=== PATIENT | male | born 1965 | race Hispanic/Latino ===

== ENCOUNTER 2020-04-05 05:42 | Emergency (ER) | payer BC, SELFPAY ==
[2020-04-05 05:43] VITALS: BP 153/95; PULSE 95; RESP 18; TEMP 36.6; O2SAT 97; BMI 29.0
--- NOTE | 2020-04-05 05:44 | RAD_ITS ---
STUDY: X-RAY CHEST REASON FOR EXAM: Male, 54 years old. Chest pain throughout the night, worsens with deep breaths. TECHNIQUE: PA and lateral views of the chest. COMPARISON: 05/30/2017 FINDINGS: There are superimposed monitor leads. There are stable areas of hyperinflation. There is no demonstrated pleural abnormality. Normal size heart. Normal mediastinum and lay. Normal visualized pulmonary arteries. Normal visualized aortic arch and descending thoracic aorta. There are mild degenerative changes of the visualized thoracic spine. Normal visualized ribs, clavicles, and shoulders. There is no demonstrated abnormality of the visualized soft tissue structures of the upper abdomen. RAD/Chest PA and Lateral IMPRESSION: Component of COPD. No pulmonary edema, congestive heart failure or confluent pneumonia. Electronically Signed: Teresa Moreno MD at 6:25 EDT , Service support ,
--- NOTE | 2020-04-05 05:44 | EKG12_ITS ---
Test Reason : CP Blood Pressure : / mmHG Vent. Rate : 084 BPM Atrial Rate : 084 BPM P-R Int : 184 ms QRS Dur : 088 ms QT Int : 368 ms P-R-T Axes : 040 031 028 degrees QTc Int : 434 ms Normal sinus rhythm Normal ECG Confirmed by JAMARI CHEN MD ([id number]), news editor YONIS SHIELDS ([id number]) on 04/07/2020 2:36:44 PM Referred By: ANTOLIN Confirmed By:JAMARI CHEN MD
--- NOTE | 2020-04-05 05:54 | ED.VIS.GEN ---
History of Present Illness Chief Complaint: Chest Pain Narrative: This patient is a 54-year-old male who presents with chest pain. This began about 9:00 last night, about 9 hours before presentation here. He describes his pain as a pressure. It is substernal and radiates to the left chest. It is 6 out of 10 at its worst. It is worse with certain positions namely laying on his left side. It is also worse with inspiration. He feels short of breath. No diaphoresis nausea vomiting. No history of prior DVT or pulmonary embolism. No extremity pain or swelling. No fevers cough or diarrhea. No recent travel. He did have a rotator cuff surgery about 2 months ago. Patient is diabetic and also treated for hyperlipidemia. He denies history of coronary artery disease. Past Medical History - Allergies and Home Meds Allergies/Adverse Reactions: Allergies No Known Allergies Allergy (Verified 04/05/20 05:43) Primary Care Physician: Edinson Esparza MD [Primary Care Provider] - Past Medical History: - - Diabetes, hyperlipidemia Surgical History: - - Rotator cuff Smoking Status: Never smoker Review of Systems All systems negative except as indicated General: Denies: Fever Eyes: Denies: Visual changes - bilaterally ENT: Denies: Bilateral ear pain Cardiovascular: Reports: Chest pain Respiratory: Reports: Dyspnea. Denies: Cough Gastrointestinal: Denies: Abdominal pain, Nausea, Vomiting Skin: Denies: Rash Neurological: Denies: Headache Physical Exam Vital Signs/Narrative: Vital Signs Temp Pulse Resp BP Pulse Ox 04/05/20 05:43 97.8 F 95 18 153/95 H 97 Inital Vital Signs reviewed: Yes General: Well nourished Head: Normocephalic Eyes: EOMI ENT: Moist mucous membranes Neck: Supple Cardiovascular: Regular rate, Regular rhythm Respiratory: No distress, CTA bilaterally Abdomen: Soft, Nontender, Nondistended Extremities: Nontender, No edema, - - Symmetric palpable radial pulses Skin: Normal color Neurological: Alert Psychological: Normal affect Diagnostic/Tx/Re-eval - Medical Decision Making EKG shows sinus rhythm at a rate of 84 there is some diffuse NH depression suggestive of pericarditis. Labs as above unremarkable normal ESR negative troponin normal d-dimer. Chest x-ray shows no acute process. Heart score is 3. However given age and comorbidities including diabetes hyperlipidemia I did recommend hospital observation. The patient states he needs to take his doctor college tomorrow. He wishes to leave AGAINST MEDICAL ADVICE. He does understand he is welcome to return at any point for reevaluation and I encouraged him to do so for any new worsening or recurrent symptoms. He was advised to contact his primary care physician for follow-up as soon as possible and he was discharged home. ED Disposition - Plan for ED Patient: Disposition: Home or Assisted Living Diagnosis: Chest pain Instructions: ED Chest Pain Atypical Unkn Cause Referrals: Edinson Esparza MD [Primary Care Provider] -
[2020-04-05 05:55] LABS: Absolute Lymphocyte Count 2.97 X10^3/uL (0.83-4.51); Absolute Neutrophil Count 7.5 X10^3/uL (2.0-7.7); Basophil# 0.05 X10^3/uL; Basophil% 0.4 % (0-1); Eosinophil# 0.23 X10^3/uL; Hematocrit 46.6 % (40-54); Hemoglobin 15.8 g/dL (13.0-16.5); Lymphocyte # 2.97 X10^3/ul (4.0); Lymphocyte % 25.3 % (19-41); Mean Corp Hgb Conc 33.9 g/dL (32-36); Mean Corpuscular Hgb 29.6 pg (27.0-32.0); Mean Corpuscular Volume 87.4 fL (80-94); Mean Platelet Vol. 9.2 fl (6.2-12.0); Monocyte# 0.97 X10^3/uL; Monocyte% 8.3 % (0-10); NRBC Flagged by Analyzer 0 % (0-5); Neutrophil # 7.49 X10^3/uL (2.7-7.7); Neutrophil % 63.7 % (47-70); Platelet Count 269 K/mm3 (150-450); RBC Distribution Width CV 12.3 % (11.6-14.6); RBC Distribution Width SD 38.9 fl (35.1-43.9); Red Blood Count 5.33 M/mm3 (4.6-6.2); White Blood Count 11.8 K/mm3 (4.4-11.0)
[2020-04-05 06:10] LABS: Erythrocyte Sedimentation Rate 9 mm/hr (0-20)
[2020-04-05] MEDS: Aspirin 81 MG TAB.CHEW 324 MG PO (06:11)
[2020-04-05 06:13] LABS: Anion Gap 8 (5-15); BUN 19 mg/dL (7-18); BUN/Creat Ratio 18.6 RATIO (10-20); Calcium,Total 8.6 mg/dL (8.5-10.1); Chloride 105 mmol/L (98-107); Creatinine, Serum 1.02 mg/dL (0.70-1.30); EST Glomerular Filtration Rate 80 mL/min (>60); Est Glom Filt Rate - Afr Amer 97 mL/min (>60); Estimated Creatinine Clearance 86.13 ml/min; Glucose 145 mg/dL (74-106); Sodium Level 138 mmol/L (136-145)
[2020-04-05 06:31] LABS: D-Dimer Quantitative (DVT/PE) <= 0.27 FEU/ug/m (0.27-0.49)
[2020-04-05 06:53] VITALS: BP 152/94; PULSE 86; RESP 16; O2SAT 95
[2020-04-05 07:15] VITALS: BP 125/95; PULSE 87; RESP 20; O2SAT 97
== END 2020-04-05 07:17 | disposition left against medical advice (07) ==
PROVIDERS: Emergency Provider Emergency Medicine; PCP Internal Medicine
DX: R07.9 Chest pain, unspecified (principal); E11.9 Type 2 diabetes mellitus without complications; E78.5 Hyperlipidemia, unspecified; Z79.84 Long term (current) use of oral hypoglycemic drugs
CPT/HCPCS: 71046; 80048; 84484; 85025; 85379; 85652; 93005; 99284; A4216

== ENCOUNTER 2020-04-05 16:52 | Emergency (ER) | payer BC, SELFPAY ==
[2020-04-05] VITALS (13 sets, daily range): BP systolic 105–140; BP diastolic 57–95; PULSE 61–88; RESP 16–20; TEMP 37; O2SAT 89–98; BMI 29.0; BMI 30.7
--- NOTE | 2020-04-05 16:58 | EKG12_ITS ---
Test Reason : Blood Pressure : / mmHG Vent. Rate : 087 BPM Atrial Rate : 087 BPM P-R Int : 180 ms QRS Dur : 086 ms QT Int : 350 ms P-R-T Axes : 033 123 133 degrees QTc Int : 421 ms Sinus rhythm Otherwise normal ECG Confirmed by JAMARI CHEN MD ([id number]), film and video editor MICHELE VEE ([id number] on 04/07/2020 3:49:02 PM Referred By: Confirmed By:JAMARI CHEN MD
--- NOTE | 2020-04-05 17:06 | ED.DCSUM_ITS ---
History of Present Illness Chief Complaint: Chest Pain Informant: Patient Onset: Yesterday Timing: Continuous Quality: Dull Location: Substernal, Left Chest Current Severity: Moderate Maximum Severity: Moderate Worsened By: Exertion, Breathing - Somewhat, at times Relieved By: Nothing - Has been continuous all day today Associated Symptoms: Lightheadedness, Palpitations. Negative for: Nausea, Vomiting, Diaphoresis, Dyspnea, Cough, Fever Narrative: Patient was seen here this morning for this discomfort and left AGAINST MEDICAL ADVICE because he wanted to help his daughter move in the college. He returns because it became worse a little earlier, and he had an episode of exertional lightheadedness that was also associated with palpitations/racing heartbeat. This lasted for a relatively short amount of time and he did not pass out. The chest discomfort was a little worse, and he has also developed tingling into his left upper extremity as well as some discomfort there. He states he has had some jaw pain off and on as well, it has been relatively mild. He has had discomfort postoperatively in his right shoulder for the last month or so since he had a rotator cuff repair. He has had no signs or symptoms of a DVT, and had a d-dimer earlier today that was negative. Patient states when he bent over forward, he noticed that he was more lightheaded, but did not notice any significant difference in his chest discomfort. States he had a treadmill str ess test long ago that was negative, because he was feeling fatigued, he cannot remember all the details but has no known history of heart disease in him or his first-degree family members that he knows of. He is a non-smoker, and does not use cocaine. - Past Medical History (1) Type 2 diabetes mellitus Status: Chronic (2) Hyperlipidemia Status: Chronic Past Medical History - Allergies and Home Meds Allergies/Adverse Reactions: Allergies No Known Allergies Allergy (Verified 04/05/20 16:57) Primary Care Physician: Edinson Esparza MD [Primary Care Provider] - As soon as possible Surgical History: - - Rotator cuff Lives: With Family Smoking Status: Never smoker Review of Systems General: Reports: Malaise. Denies: Chills, Fever, Sweats Eyes: Denies: Visual changes - bilaterally, Diplopia ENT: Denies: Bilateral ear pain, Rhinorrhea, Sore throat Cardiovascular: Reports: Chest pain, Palpitations, Heart racing Respiratory: Denies: Dyspnea, Cough, Dyspnea on exertion Gastrointestinal: Denies: Abdominal pain, Nausea, Vomiting, Diarrhea, Melena, Hematochezia Genitourinary: Denies: Dysuria, Hematuria, Frequency Musculoskeletal: Reports: Extremity Pain. Denies: Back pain, Swelling Skin: Denies: Rash, Wounds Neurological: Reports: Parasthesia - Left hand earlier. Denies: Headache, Weakness Physical Exam Vital Signs/Narrative: Vital Signs Temp Pulse Resp BP Pulse Ox 04/05/20 16:57 98.6 F 88 20 H 139/90 H 98 04/05/20 16:53 98.6 F 88 20 H 139/90 H 98 Inital Vital Signs reviewed: Yes General: Well nourished, Well developed, No Acute Distress Head: Normocephalic, Atraumatic Eyes: Perrl, EOMI ENT: Moist mucous membranes, No rhinorrhea Neck: Supple, Nontender, No lymphadenopathy, No JVD Cardiovascular: Regular rate, Regular rhythm, No murmurs. Negative for: Tachycardia Respiratory: No distress, CTA bilaterally, Chest nontender Abdomen: Soft, Nontender, Nondistended, Normal bowel sounds Back: Nontender, Normal Inspection Extremities: Nontender, No edema. Negative for: Calf Tenderness Skin: Normal color, No rash, No Trauma Neurological: Alert, Oriented x3, Cranial nerves II-XII grossly intact, Normal Strength, Normal Sensation Psychological: Normal affect, Normal Mood Diagnostic/Tx/Re-eval Laboratory Tests 04/05/20 Range/Units 16:55 Troponin I < 0.015 (<0.045) ng/mL - Rhythm Strip Rhythm Strip: Sinus Rhythm Rate: 85 Ectopy: None - EKG Initial EKG Interpretation: Sinus Rhythm, No Acute Injury Pattern, Non-Specific ST Changes - including minor less than 1mm ST elev diffuse precordial and lead I Prior: Unchanged Treatment: Aspirin, NTG SL Repeat Eval: Improved, feeling better DEEPALI Risk: No Positive DEEPALI Elements Score: 0 - Medical Decision Making Heart score is 4, 1 for age, 1 for history, 1 for risk, 1 for nonspecific EKG although it is unchanged. He has had discomfort all day with a second troponin now that is also negative. Unfortunately they do not do stress test tomorrow since it is Tuesday, so given that and the fact that the patient will be criteria for inpatient observation 23 hours only, I doubt admission to the hospital would be beneficial. Otherwise I would recommend it. He wants to follow-up as an outpatient to get a stress test as an outpatient. I discussed with the hospitalist to confirm that they do not offer stress test on Tuesday here. Discussed reasons to return with the patient and he is comfortable with that plan. Discussed with Dr. Love, covering for his PCP, who agrees with this plan and they will contact the patient after the weekend to schedule a stress test as an outpatient. ED Disposition - Plan for ED Patient: Disposition: Home or Assisted Living Diagnosis: Chest pain, unspecified Instructions: ED Chest Pain Atypical Unkn Cause Referrals: Edinson Esparza MD [Primary Care Provider] - As soon as possible
[2020-04-05] MEDS: Aspirin 81 MG TAB.CHEW 324 MG PO (17:49)
[2020-04-05] MEDS: Nitroglycerin SL (ED/IMG/CATH) 0.4 MG TABLET SUBLINGUAL ×3 (17:51→18:03)
== END 2020-04-05 20:53 | disposition home or self-care (01) ==
PROVIDERS: Emergency Provider Emergency Medicine; PCP Internal Medicine
DX: R07.9 Chest pain, unspecified (principal); E11.9 Type 2 diabetes mellitus without complications; E78.5 Hyperlipidemia, unspecified; Z79.84 Long term (current) use of oral hypoglycemic drugs
CPT/HCPCS: 84484; 93005; 99285

== ENCOUNTER → 2020-04-16 09:55 | Outpatient (CLI) | payer BC, SELFPAY ==
[2020-04-05 16:53] VITALS: BMI 30.7
--- NOTE | 2020-04-16 11:35 | STRESSREP ---
Stress Test Report Treadmill EKG: Resting EKG: Normal sinus rhythm, normal axis, normal intervals, no evidence of previous myocardial infarction. Treadmill EKG: Patient exercised according to a Mode protocol for 10 minutes and 39 seconds achieving a maximum workload of 12.80 METS. Resting heart rate was initially 59 beats a minute and sergio to max of 169 beats a minute which represents 103% of the maximal age-predicted heart rate. Resting blood pressure was 120/80, and sergio to maximum 142/72. Test was terminated due to fatigue. During exercise the patient's heart rate increased as expected. The patient had no dynamic EKG changes to suggest ischemia. Single PVC noted. Conclusions: Normal, adequate, treadmill EKG. Negative for ischemia by EKG criteria. No anginal symptoms noted. Rare PVC noted. Appropriate blood pressure response to exercise. Average exercise capacity for age. Patient tolerated procedure well. No complications.
== END ==
LOC: CVS 09:57
PROVIDERS: PCP Internal Medicine; Referring Provider Nurse Practitioner; Visit Provider Nurse Practitioner
DX: R07.9 Chest pain, unspecified (principal); R94.31 Abnormal electrocardiogram [ECG] [EKG]
CPT/HCPCS: 93017

== ENCOUNTER 2020-12-04 15:50 | Outpatient (RCR) | payer BC, SELFPAY ==
[2020-04-05 16:53] VITALS: BMI 30.7
== END 2021-01-27 23:59 ==
LOC: IMMUN 15:50
PROVIDERS: PCP Internal Medicine; Visit Provider Family Medicine
DX: Z23 Encounter for immunization (principal)
CPT/HCPCS: 0001A; 0002A; 91300